=== PATIENT | male | born 1985 | race African-American/Black ===

== ENCOUNTER 2018-03-27 02:27 | Emergency (ER) | payer MEDICAID, MEDICARE ==
[~2018-03-27] VITALS: Ht 172.7 cm; Wt 80.7 kg
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
[2018-03-27] MEDS ORDERED: LORAZEPAM INJ 2 MG/ML VIAL ONE ×2 (02:48→03:49)
[2018-03-27] MEDS ORDERED: LORAZEPAM INJ 2 MG/ML VIAL IV ONE ×2 (03:00→04:00)
[2018-03-27 03:11] LABS: BASOPHILS % (AUTO) 0.4 % (0.0-2.0); EOSINOPHILS % (AUTO) 0.2 % (0.0-6.0); HEMATOCRIT 48 % (39-51); HEMOGLOBIN 16.1 g/dL (13.5-17.5); LYMPHOCYTES # (AUTO) 1.1 /CMM (0.8-4.8); MEAN CORPUSCULAR HGB CONC 34 g/dl (31.0-36.0); MEAN CORPUSCULAR VOLUME 86 fL (80-96); MONOCYTES # (AUTO) 0.7 /CMM (0.1-1.30); MONOCYTES % (AUTO) 7.8 % (2.0-12.0); NEUTROPHILS % (AUTO) 79.6 % (43.0-81.0); PLATELET COUNT (AUTO) 303 /CMM (150-450); RDW COEFFICIENT OF VARIATION 13.1 (11.5-15.0); RED BLOOD CELL COUNT(AUTO) 5.58 MIL/uL (4.5-6.0); WHITE BLOOD COUNT (AUTO) 8.8 K/uL (4.3-11.0)
[2018-03-27 03:25] LABS: CALCIUM, SERUM 9.6 mg/dL (8.5-10.1); CARBON DIOXIDE 28 mmol/L (21-32); CHLORIDE 99 mmol/L (98-107); CREATININE 1.3 mg/dL (0.6-1.3); GLUCOSE 109 mg/dL (74-106); INR 0.99 (0.87-1.13); POTASSIUM 3.5 mmol/L (3.5-5.1); SODIUM SERUM 140 mmol/L (136-145); UREA NITROGEN, BLOOD 13 mg/dL (7-18)
[2018-03-27 03:30] LABS: TROPONIN I < 0.017 ng/mL (0.00-0.056)
--- NOTE | 2018-03-27 03:30 | NUR ---
PT AMBULATED TO THE BATHROOM WITH A STEADY GAIT.
--- NOTE | 2018-03-27 03:42 | NUR ---
PT RETURNED TO BED #10 AND WAS CONNECTED TO THE MONITOR AND CONTINUOUS PULSE OX. PT STARTED TALKING TO A FRIEND ON HIS CELL PHONE. PT APPEARS ANXIOUS. PT'S HR IS 132. DR. PALOMARES IS AWARE.
--- NOTE | 2018-03-27 03:47 | NUR ---
DR. PALOMARES IS AT THE BEDSIDE SPEAKING TO THE PT.
[2018-03-27] MEDS ORDERED: IV NS 0.9% 1,000 ML BAG IV ONE (04:00)
--- NOTE | 2018-03-27 04:30 | NUR ---
PT APPEARS TO BE RESTING COMFORTABLY WITH NO S/S OF PAIN OR DISTRESS.
--- NOTE | 2018-03-27 05:24 | NUR ---
IV removed. Catheter intact and site benign. Pressure and 4x4 applied to site. No bleeding noted.Patient discharged to home in stable condition. Written and verbal after care instructions given. Patient verbalizes understanding of instruction. PT AMBULATED OUT TO THE LOBBY WITH A STEADY GAIT. PT'S MOTHER IS IN THE LOBBY TO TAKE THE PT HOME. VSS. NAD NOTED.
[2018-03-27 05:27] VITALS: BP 153/94
== END 2018-03-27 05:28 | disposition home or self-care (01) ==
LOC: ER 02:31
DX: R41.9 Unspecified symptoms and signs involving cognitive functions and awareness (principal); F14.10 Cocaine abuse, uncomplicated; R00.0 Tachycardia, unspecified; F17.200 Nicotine dependence, unspecified, uncomplicated; Z88.1 Allergy status to other antibiotic agents; Z88.8 Allergy status to other drugs, medicaments and biological substances; Z60.2 Problems related to living alone
CPT/HCPCS: 36415; 71045-TC; 80048-TC; 84484-TC; 85025-TC; 85730-TC; A4606; J2060; J7030; Z7610

== ENCOUNTER 2019-10-15 20:50 | Emergency (ER) | payer MEDICAID ==
[~2019-10-15] VITALS: Ht 167.6 cm; Wt 75.3 kg
--- NOTE | 2019-10-15 21:04 | NUR ---
CALLED FOR PT. NO RESPONSE
[2019-10-15 21:28] VITALS: BP 122/76
[2019-10-15] MEDS ORDERED: ACETAMINOPHEN ES 500 MG TABLET PO ONE (22:00)
[2019-10-15] MEDS ORDERED: TDAP [DIPH/PERTUSSIS/TET] 0.5 ML VIAL IM ONE ×2 (22:00→22:17)
[2019-10-15] MEDS ORDERED: ACETAMINOPHEN ES 500 MG TABLET ONE (22:16)
[2019-10-15] MEDS ORDERED: ONDANSETRON 4 MG TAB.RAPDIS ONE (22:16)
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
[2019-10-15] MEDS ORDERED: LIDOCAINE /MPF 1% VIAL 5 ML VIAL ONE (22:28)
[2019-10-15] MEDS ORDERED: ONDANSETRON 4 MG TAB.RAPDIS SL ONE (22:30)
--- NOTE | 2019-10-15 22:32 | NUR ---
[employer]LEY CAMPAIGN CONSULTANT AT BEDSIDE FOR SUTURING PROCEDURE.
--- NOTE | 2019-10-15 22:46 | NUR ---
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
--- NOTE | 2019-10-15 23:12 | NUR ---
PATIENT SAYS "I GOTTA GET HOME TO MY DAUGHTER, I CAN'T WAIT ANY MUCH LONGER". PATIENT LEFT WITH STEADY GAIT. ADMIT/REGISTER LADNeema MALIN ASKED HIM TO SIGN PAPERS. PAPERS WERE SIGNED. ASHLEY PAZ NOTIFIED.
== END 2019-10-15 23:17 | disposition left against medical advice (07) ==
LOC: ER 20:53
DX: S06.0X0A Concussion without loss of consciousness, initial encounter (principal); S01.511A Laceration without foreign body of lip, initial encounter; S05.12XA Contusion of eyeball and orbital tissues, left eye, initial encounter; S60.415A Abrasion of left ring finger, initial encounter; F12.10 Cannabis abuse, uncomplicated; F10.10 Alcohol abuse, uncomplicated; F17.200 Nicotine dependence, unspecified, uncomplicated; Y90.9 Presence of alcohol in blood, level not specified; Z23 Encounter for immunization; Z88.1 Allergy status to other antibiotic agents; Z88.8 Allergy status to other drugs, medicaments and biological substances; Y08.89XA Assault by other specified means, initial encounter; Y93.89 Activity, other specified; Y92.89 Other specified places as the place of occurrence of the external cause; Y99.8 Other external cause status
CPT/HCPCS: 12011; 90471; 90715; 99283; J3490; Q0162

== ENCOUNTER 2024-04-21 10:00 | Emergency (ER) | payer MEDICAID, OTHER ==
[~2024-04-21] VITALS: Ht 172.7 cm; Wt 74.8 kg
[2024-04-21] MEDS ORDERED: ONDANSETRON HCL/PF 4 MG/2 ML VIAL ONE ×2 (10:17→11:02)
[2024-04-21] MEDS: ONDANSETRON HCL/PF 4 MG/2 ML VIAL IVP ONE (10:21)
[2024-04-21 10:23] LABS: BASOPHILS % (AUTO) 0.5 % (0.0-2.0); EOSINOPHILS % (AUTO) 0.1 % (0.0-6.0); HEMATOCRIT 43 % (39-51); HEMOGLOBIN 14.5 g/dL (13.5-17.5); LYMPHOCYTES # (AUTO) 0.8 K/uL (0.8-4.8); LYMPHOCYTES % (AUTO) 11.2 % (20.0-44.0); MEAN CORPUSCULAR HEMOGLOBIN 27 PG (26.0-33.0); MEAN CORPUSCULAR HGB CONC 34 g/dl (31.0-36.0); MEAN CORPUSCULAR VOLUME 82 fL (80-96); MONOCYTES # (AUTO) 0.2 K/uL (0.1-1.30); MONOCYTES % (AUTO) 3.4 % (2.0-12.0); NEUTROPHILS # (AUTO) 6.3 K/uL (1.8-8.9); NEUTROPHILS % (AUTO) 84.8 % (43.0-81.0); PLATELET COUNT (AUTO) 407 K/uL (150-450); RED BLOOD CELL COUNT(AUTO) 5.29 MIL/uL (4.5-6.0); RED CELL DISTRIBUTION WIDTH 13.6 % (11.5-15.0); WHITE BLOOD COUNT (AUTO) 7.4 K/uL (4.3-11.0)
[2024-04-21] MEDS: IV NS 0.9% 1,000 ML BAG IV ONE ×2 (10:27→11:00)
[2024-04-21] MEDS: LIDOCAINE VISCOUS 2% UD 15 ML UDC MM ONE (10:30)
[2024-04-21] MEDS: FAMOTIDINE/PF INJ 20 MG/2 ML VIAL IV ONE (10:30)
[2024-04-21] MEDS ORDERED: MAG HYDROX/AL HYDROX/SIMETH 30 ML UDC ONE (10:30)
[2024-04-21] MEDS ORDERED: FAMOTIDINE/PF INJ 20 MG/2 ML VIAL IV ONE (10:30)
[2024-04-21] MEDS: MAG HYDROX/AL HYDROX/SIMETH 30 ML UDC PO ONE (10:30)
[2024-04-21] MEDS ORDERED: LIDOCAINE VISCOUS 2% UD 15 ML UDC ONE (10:30)
[2024-04-21 10:31] LABS: CALCIUM, SERUM 10.3 mg/dL (8.5-10.1); CREATININE 1.2 mg/dL (0.6-1.3); POTASSIUM 3.5 mmol/L (3.5-5.1)
[2024-04-21 10:36] LABS: ALBUMIN 4.6 g/dL (3.4-5.0); BILIRUBIN,DIRECT 0.1 mg/dL (0.0-0.2); BILIRUBIN,TOTAL 0.3 mg/dL (0.2-1.0); TOTAL PROTEIN, SERUM 9.3 g/dL (6.4-8.2)
[2024-04-21] MEDS: ONDANSETRON HCL/PF 4 MG/2 ML VIAL IV ONE (11:00)
[2024-04-21 11:02] LABS: APPEARANCE,URINE Clear (CLEAR); BILIRUBIN,URINE Negative (NEGATIVE); BLOOD, URINE Negative Ery/uL (NEGATIVE); COLOR,URINE YELLOW (YELLOW); KETONES,URINE 40 mg/dL (NEGATIVE); LEUKOCYTE ESTERASE ,URINE Negative (NEGATIVE); NITRITE, URINE Negative (NEGATIVE); PROTEIN,URINE 30 mg/dl (NEGATIVE); UGLUCOSE Negative (NEGATIVE); UROBILINOGEN,URINE 0.2 EU/dL (0.2)
[2024-04-21 11:13] LABS: ADD URINE CULTURE NO; BACTERIA,URINE 1+ /HPF (None Seen); RBC,URINE 0-2 /HPF (0-2); WBC,URINE 0-2 /HPF (0-3)
[2024-04-21] MEDS ORDERED: ONDA4TAB5 PO (11:13)
[2024-04-21] MEDS ORDERED: FAMO-131 PO (11:13)
[2024-04-21 11:14] LABS: MUCUS,URINE Few /LPF (None Seen)
[2024-04-21] MEDS ORDERED: CHLO25CA22 PO (12:17)
[2024-04-21 13:08] VITALS: BP 132/68; TEMP 98.2; O2SAT 100
== END 2024-04-21 13:09 | disposition home or self-care (01) ==
LOC: ER 10:03
DX: R10.13 Epigastric pain (principal); R11.2 Nausea with vomiting, unspecified; F10.10 Alcohol abuse, uncomplicated; F17.200 Nicotine dependence, unspecified, uncomplicated; Z88.8 Allergy status to other drugs, medicaments and biological substances; Z60.2 Problems related to living alone; Y90.9 Presence of alcohol in blood, level not specified
CPT/HCPCS: 99284; 96374; 96361 ×2; 96375; 71045; 96376; 85025; 80048; 83690; 80076; 81001; 36415; 80320; 98960; J3490; J2405 ×2; J7030; G0480

== ENCOUNTER 2025-06-27 06:46 | Emergency (ER) | payer OTHER ==
[~2025-06-27 06:46] MED LIST: CHLO25CA22 PO; FAMO-131 PO; ONDA4TAB5 PO
== END 2025-06-27 07:27 | disposition left against medical advice (07) ==
LOC: ER 06:46
DX: M54.9 Dorsalgia, unspecified (principal); Z53.21 Procedure and treatment not carried out due to patient leaving prior to being seen by health care provider